=== PATIENT | female | born 1970 | race African-American/Black ===

== ENCOUNTER 2017-10-02 17:38 | Emergency (ER) | payer OTHER ==
[~2017-10-02] VITALS: Ht 172.7 cm; Wt 85.0 kg
[~2017-10-02 17:38] MED LIST: AUGM875T PO; IBUP-232 PO; PERI0.126 SWISH-SPIT
[2017-10-02 17:40] VITALS: BP 173/94; PULSE 99; RESP 16; TEMP 98.5; O2SAT 99
--- NOTE | 2017-10-02 18:07 | PD ---
HPI Chief Complaint: Skin Problem Time Seen by Provider: 17:58 Travel History International Travel<30 days: No Contact w/Intl Traveler<30days: No Traveled to known affect area: No History of Present Illness HPI Examined in the presence of a female nurse. 46-year-old female presents for evaluation of area of painful skin redness and swelling on the posterior right back. She reports that she's had a cystic lesion for the past few months but over the past several days the lesion has become larger in size and painful. Pain is aching and worse with palpation. Denies fevers, chills, drainage. No other complaints. PFSH Past Medical History Anemia: Yes Cancer: Yes (RIGHT BREAST CANCER-RADIATION [place]) Diminished Hearing: No Migraines: Yes Radiation Therapy: Yes ?: Not LMP: 09/28/17 : 4 Para: 4 Tubal Ligation: Yes Past Surgical History Abdominal Surgery: Yes (SPLENECTOMY) Social History Alcohol Use: No Tobacco Use: No Substance Use: No Allergies-Medications (Allergen,Severity, Reaction): Coded Allergies: *MDRO Multi-Drug Resistant Organism (Unverified Allergy, Unknown, 10/03/16 ) MRSA 2013 Acinetobacter baumannii 2014 Reported Meds & Prescriptions Reported Meds & Active Scripts Active Clindamycin (Clindamycin HCl) 300 Mg Cap 300 Mg PO TID 7 Days Review of Systems General / Constitutional: No: Fever, Chills Skin: Positive Other (painful soft tissue swelling) Physical Exam Narrative GENERAL: Well-nourished female in no acute distress SKIN: Warm and dry. 2 cm tender fluctuant soft cystic lesion to the right posterior back. No drainage. No erythema. HEAD: Atraumatic. Normocephalic. EYES: Pupils equal and round. No scleral icterus. No injection or drainage. ENT: No nasal bleeding or discharge. Mucous membranes pink and moist. NECK: Trachea midline. No JVD. CARDIOVASCULAR: Regular rate and rhythm. No murmur appreciated. RESPIRATORY: No accessory muscle use. Clear to auscultation. Breath sounds equal bilaterally. Data Data Last Documented VS Vital Signs Date Time Temp Pulse Resp B/P (MAP) Pulse Ox O2 Delivery O2 Flow Rate FiO2 10/02/17 17:40 98.5 99 16 173/94 (120) 99 Room Air Orders Orders Wound Culture And Gram Stain (10/02/17 18:04) [facility] Medical Decision Making Medical Screen Exam Complete: Yes Emergency Medical Condition: Yes Medical Record Reviewed: Yes Differential Diagnosis Infected cyst, abscess, sarcoma Narrative Course Examination and history are consistent with infected cyst. Plan is for incision and drainage, wound culture. She verbally consents. Wound culture sent. Started on clindamycin. Stable for discharge. Procedures Procedure Narrative INCISION AND DRAINAGE OF INFECTED SEBACEOUS CYST The area was prepped and was sterilely draped. A subcutaneous wheal of 1% Xylocaine with a total number 5 mL was used to anesthetize the area. The area was properly anesthetized. A number 11 scalpel was used to make a 1 -cm incision across the area of the abscess. Cultures were obtained. The abscess was drained an irrigated with normal saline. Diagnosis Primary Impression: Infected cyst of skin Additional Instructions: Warm compresses a few times a day 15 minutes at a time. Antibiotics as prescribed. Follow-up with primary care physician as needed. Return for any acutely new or worsening symptoms. Med/Other Pt SpecificInfo: Prescription(s) given, Wound Care Scripts Clindamycin (Clindamycin) 300 Mg Cap 300 MG PO TID for Infection for 7 Days, CAP 0 Refills Prov: Nitish Jimenez MD 10/02/17 Disposition: 01 DISCHARGE HOME Condition: Stable Deepak Nobles Oct 02, 2017 18:07
[2017-10-02] MEDS ORDERED: CLIN300C5 PO (18:21)
== END 2017-10-02 19:16 | disposition home or self-care (01) ==
LOC: NEPK 17:38
DX: L72.9 Follicular cyst of the skin and subcutaneous tissue, unspecified (principal); L08.9 Local infection of the skin and subcutaneous tissue, unspecified; Z85.3 Personal history of malignant neoplasm of breast; Z92.3 Personal history of irradiation
CPT/HCPCS: 10060; 87070; 87185; 87205

== ENCOUNTER 2018-04-27 22:00 | Emergency (ER) | payer SELFPAY ==
[~2018-04-27] VITALS: Ht 172.7 cm; Wt 85.0 kg
[~2018-04-27 22:00] MED LIST changes: -AUGM875T PO; +CLIN300C5 PO; -IBUP-232 PO; -PERI0.126 SWISH-SPIT
[2018-04-27 22:26] VITALS: BP 117/101; PULSE 119; RESP 22; TEMP 98.6; O2SAT 99
--- NOTE | 2018-04-27 22:54 | PD ---
HPI Chief Complaint: Respiratory Symptoms Time Seen by Provider: 22:34 Travel History International Travel<30 days: No Contact w/Intl Traveler<30days: No Traveled to known affect area: No History of Present Illness HPI Patient is a 47-year-old female who presents to the emergency room for evaluation of not feeling well. Patient reports that for the past few days, she has had a runny nose, reports that she has had a productive cough, reports wheezing and shortness of breath. Patient reports that a family member at home is sick with similar symptoms. Patient reports that she has been feeling subjective fevers and chills, reports concerns for possible pneumonia. Patient reports that nothing makes the cough better or worse, reports that she has been coughing so much, she has been losing her voice. PFSH Past Medical History Anemia: Yes Cancer: Yes (RIGHT BREAST CANCER-RADIATION [place]) Diminished Hearing: No Migraines: Yes Radiation Therapy: Yes Tetanus Vaccination: < 5 Years Influenza Vaccination: No ?: Not LMP: 04/06/2018 : 4 Para: 4 Tubal Ligation: Yes Past Surgical History Abdominal Surgery: Yes (SPLENECTOMY) Social History Alcohol Use: No Tobacco Use: No Substance Use: No Allergies-Medications (Allergen,Severity, Reaction): Coded Allergies: *MDRO Multi-Drug Resistant Organism (Unverified Allergy, Unknown, 04/27/18) MRSA 2013 Acinetobacter baumannii 2013 Reported Meds & Prescriptions Reported Meds & Active Scripts Active No Active Prescriptions or Reported Medications Review of Systems General / Constitutional: Positive: Fever, Chills Eyes: No: Visual changes HENT: No: Headaches Cardiovascular: No: Chest Pain or Discomfort, Palpitations, Irregular Rhythm, Tachycardia Respiratory: Positive: Cough, Shortness of Breath, Wheezing Gastrointestinal: No: Abdominal Pain Genitourinary: No: Dysuria Musculoskeletal: No: Pain Skin: No Rash Neurologic: No: Weakness Psychiatric: No: Depression Endocrine: No: Polydipsia Hematologic/Lymphatic: No: Easy Bruising Physical Exam Narrative GENERAL: moderate distress SKIN: Focused skin assessment warm/dry. HEAD: Atraumatic. Normocephalic. EYES: Pupils equal and round. No scleral icterus. No injection or drainage. ENT: No nasal bleeding or discharge. Mucous membranes pink and moist. NECK: Trachea midline. No JVD. CARDIOVASCULAR: Tachycardia. No murmur appreciated. RESPIRATORY: No accessory muscle use. Scattered wheezing. Breath sounds equal bilaterally. GASTROINTESTINAL: Abdomen soft, non-tender, nondistended. Hepatic and splenic margins not palpable. MUSCULOSKELETAL: No obvious deformities. No clubbing. No cyanosis. No edema. NEUROLOGICAL: Awake and alert. No obvious cranial nerve deficits. Motor grossly within normal limits. Normal speech. PSYCHIATRIC: Appropriate mood and affect; insight and judgment normal. Data Data Last Documented VS Vital Signs Date Time Temp Pulse Resp B/P (MAP) Pulse Ox O2 Delivery O2 Flow Rate FiO2 04/27/18 23:10 22 04/27/18 22:26 98.6 119 117/101 (106) 99 Orders Orders Complete Blood Count With Diff (04/27/18 22:48) Basic Metabolic Panel (Bmp) (04/27/18 22:48) Blood Culture (04/27/18 22:48) Iv Access Insert/Monitor (04/27/18 22:48) Ecg Monitoring (04/27/18 22:48) Oximetry (04/27/18 22:48) Chest, Pa & Lat (04/27/18 22:48) Sodium Chloride 0.9% Flush (Ns Flush) (04/27/18 23:00) Methylprednisolone So Succ Inj (Solumedr (04/27/18 23:00) Albuterol-Ipratropium Neb (Duoneb Neb) (04/27/18 23:00) Sodium Chlor 0.9% 1000 Ml Inj (Ns 1000 M (04/27/18 23:00) Ed Urine Pregnancytest Poc (04/27/18 22:48) Lactic Acid Sepsis Protocol (04/27/18 22:55) Labs Laboratory Tests Test 04/27/18 23:15 04/27/18 23:36 White Blood Count 13.4 TH/MM3 Red Blood Count 4.22 MIL/MM3 Hemoglobin 9.7 GM/DL Hematocrit 30.4 % Mean Corpuscular Volume 72.0 FL Mean Corpuscular Hemoglobin 22.9 PG Mean Corpuscular Hemoglobin Concent 31.9 % Red Cell Distribution Width 19.0 % Platelet Count 396 TH/MM3 Mean Platelet Volume 8.4 FL Neutrophils (%) (Auto) 74.3 % Lymphocytes (%) (Auto) 17.5 % Monocytes (%) (Auto) 7.5 % Eosinophils (%) (Auto) 0.4 % Basophils (%) (Auto) 0.3 % Neutrophils # (Auto) 9.9 TH/MM3 Lymphocytes # (Auto) 2.3 TH/MM3 Monocytes # (Auto) 1.0 TH/MM3 Eosinophils # (Auto) 0.0 TH/MM3 Basophils # (Auto) 0.0 TH/MM3 CBC Comment DIFF FINAL Differential Comment Blood Urea Nitrogen 6 MG/DL Creatinine 0.70 MG/DL Random Glucose 93 MG/DL Calcium Level 8.6 MG/DL Sodium Level 139 MEQ/L Potassium Level 3.3 MEQ/L Chloride Level 105 MEQ/L Carbon Dioxide Level 23.4 MEQ/L Anion Gap 11 MEQ/L Estimat Glomerular Filtration Rate 109 ML/MIN Lactic Acid Level 1.3 mmol/L MDM Medical Decision Making Medical Screen Exam Complete: Yes Emergency Medical Condition: Yes Medical Record Reviewed: Yes Interpretation(s) Vital Signs Date Time Temp Pulse Resp B/P (MAP) Pulse Ox O2 Delivery O2 Flow Rate FiO2 04/27/18 22:26 98.6 119 22 117/101 (106) 99 Differential Diagnosis Acute bronchitis, pneumonia, viral syndrome Narrative Course Patient is a 47-year-old female who presents the emergency room for evaluation of cough, congestion, fever and chills which has been ongoing for the past 3 days. Patient is tachycardic with increased respiratory rate, patient has been pancultured. During the course of the patients emergency department visit, the patients history, examination, and differential diagnosis were reviewed with the patient. The patient was placed on a monitoring coordinator with oximetry and frequent blood pressure monitoring. The patient had an IV access obtained and blood work sent for analysis. The patient was initially provided IV fluids, IV steroids, DuoNeb treatments.. The patients laboratory studies were reviewed and remarkable for CBC & BMP Diagram 04/27/18 23:15 04/27/18 23:36 Calcium Level 8.6 Radiology studies were reviewed and remarkable for Last Impressions Chest X-Ray 04/27/18 1310 Signed Impressions: CONCLUSION: No acute cardiopulmonary disease identified. Patient with a wbc 13.6, hemoglobin 9.7, hematocrit 30.4, platelets 296, lactic acid was 1.3. Sodium 139, potassium 3.3, BUN 6, creatinine 0.7, glucose 93 Patient feeling much better after she received no treatments as well as IV steroids. Vital signs have improved. Plan to discharge patient to home with treatment for acute bronchitis. She will be given a dose of azithromycin prior to discharge. Patient will follow her primary care doctor and will return to the emergency room as needed. Sepsis Criteria SIRS Criteria (2 or more): Heart rate over 90, RR > 20 or PaCO2 < 32 Diagnosis Primary Impression: Bronchitis Patient Instructions: General Instructions Additional Instructions: Please follow up with your primary care doctor in 2-3 days Return to the ER if symptoms worsen or progress Return to the ER as needed Med/Other Pt SpecificInfo: Prescription(s) given Scripts Prednisone (Prednisone) 20 Mg Tab 20 MG PO BID for 5 Days, #10 TAB 0 Refills Prov: Radha Farias DO 04/28/18 Albuterol 8.5 GM Inh (Proair Hfa 8.5 GM Inh) 90 Mcg/Act Aer 2 PUFF INH Q4-6H Y for SHORTNESS OF BREATH, #1 INHALER 0 Refills 108 mcg/actuation Prov: Radha Farias DO 04/28/18 Azithromycin (Azithromycin) 500 Mg Tab 500 MG PO DAILY for Infection, #5 TAB 0 Refills Prov: Radha Farias DO 04/28/18 Disposition: 01 DISCHARGE HOME Condition: Stable Radha Farias DO Apr 27, 2018 22:54
[2018-04-27] MEDS ORDERED: methylPREDNISolone SOD SUCC 125 MG/2 ML VIAL IV PUSH ONE (23:00)
[2018-04-27] MEDS ORDERED: SODIUM CHLOR 0.9% 1000 ML INJ 1,000 ML IV ONE (23:00)
[2018-04-27] MEDS ORDERED: SODIUM CHLORIDE 0.9% FLUSH 10 ML FLUSH IVF PRN (23:00)
--- NOTE | 2018-04-27 23:05 | RADRPT ---
EXAM DATE: 04/27/2018 11:00 PM EDT AGE/SEX: 47 years / Female INDICATIONS: Cough. CLINICAL DATA: This is the patient's initial encounter. Patient reports that signs and symptoms have been present for 2 days and indicates a pain score of 0/10. MEDICAL/SURGICAL HISTORY: None. None. COMPARISON: No prior exams available for comparison. FINDINGS: PA and lateral views of the chest demonstrate the lungs to be symmetrically aerated without evidence of mass, infiltrate or effusion. The cardiomediastinal contours are unremarkable. Osseous structures are intact. CONCLUSION: No acute cardiopulmonary disease identified. Electronically signed by: Bridger Segura MD 04/27/2018 11:04 PM EDT
[2018-04-27 23:10] VITALS: RESP 22
[2018-04-27] MEDS: RESP: ALBUTEROL 2.5 MG/IPRATROPIUM 0.5 MG NEB (SCH) INH (23:13)
[2018-04-27 23:38] LABS: AUTOMATED NEUTROPHIL # 9.9 TH/MM3 (1.8-7.7); BASOPHIL % 0.3 % (0.0-2.0); EOSINOPHIL % 0.4 % (0.0-4.0); HEMATOCRIT 30.4 % (35.0-46.0); HEMOGLOBIN 9.7 GM/DL (11.6-15.3); LYMPH % 17.5 % (9.0-44.0); LYMPHOCYTE # 2.3 TH/MM3 (1.0-4.8); MEAN CORPUSCULAR HEMOGLOBIN 22.9 PG (27.0-34.0); MEAN CORPUSCULAR HGB CONC 31.9 % (32.0-36.0); MEAN PLATELET VOLUME 8.4 FL (7.0-11.0); MONO % 7.5 % (0.0-8.0); NEUT % 74.3 % (16.0-70.0); PLATELET COUNT 396 TH/MM3 (150-450); RED BLOOD COUNT 4.22 MIL/MM3 (4.00-5.30); WHITE BLOOD COUNT 13.4 TH/MM3 (4.0-11.0)
[2018-04-28] LABS: BICARBONATE 23.4 MEQ/L (21.0-32.0); CALCIUM 8.6 MG/DL (8.5-10.1); CREATININE 0.7 MG/DL (0.50-1.00)
[2018-04-28] MEDS ORDERED: ALBUAER3 INH (00:44)
[2018-04-28] MEDS ORDERED: PRED20 PO (00:44)
[2018-04-28] MEDS ORDERED: AZIT500T2 PO (00:44)
[2018-04-28 00:45] VITALS: BP 181/109; PULSE 100; RESP 20; TEMP 98.9; O2SAT 97
[2018-04-28] MEDS ORDERED: AZITHROMYCIN 250 MG TAB PO ONE (00:45)
[2018-04-28] MEDS ORDERED: POTASSIUM CHLORIDE 10 MEQ CONTROLLED RELEASE TAB PO ONE (00:45)
[2018-04-28 00:52] VITALS: BP 170/94; PULSE 98; RESP 20; TEMP 98.9; O2SAT 98
== END 2018-04-28 01:15 | disposition home or self-care (01) ==
LOC: NEPE 22:00
DX: J20.9 Acute bronchitis, unspecified (principal); Z85.3 Personal history of malignant neoplasm of breast
CPT/HCPCS: 71046; 80048; 83605; 84703; 85025; 87040; 94640; 94664; 96361; 96374; 99284; J2930; J7030